=== PATIENT | male | born 1985 ===

== ENCOUNTER 2016-06-23 20:35 | Emergency (ER) | payer SELFPAY ==
[2016-06-23] MEDS ORDERED: PREDNISONE 20 MG TABLET ONE (21:30)
== END 2016-06-23 22:34 | disposition home or self-care (01) ==
LOC: ED 20:35
DX: J02.0 Streptococcal pharyngitis (principal); R53.1 Weakness

== ENCOUNTER 2016-08-11 17:21 | Emergency (ER) | payer SELFPAY ==
[2016-08-11] MEDS ORDERED: IOPAMIDOL 370 (76%) 100 ML VIAL IV ONE (17:22)
--- NOTE | 2016-08-11 19:02 | CT ---
Exam Type: ABD/PELVIS W/ CON Date and Time: 08/11/2016 6:25 PM Clinical information: Rectal bleeding with abdominal pain. Comparison: None Procedure: Imaging device: [employer] Aquilion [address] scanner 1 mm axial images were obtained through the abdomen and pelvis. Stacked reconstructed 3, 4 and 5 mm images were photographed in the axial coronal and sagittal planes. No oral contrast was utilized for this examination. 100 ml of Isovue-370 was injected intravenously. Exam: with intravenous contrast. FINDINGS: Lung bases:The visualized lung bases appear to be appropriate with no mass, effusion or consolidation visualized. Liver: the liver is homogeneous with no discrete abnormality visualized. No definite findings of biliary dilatation are observed. Spleen: The spleen is homogeneous and does not appear to be enlarged. Gallbladder: Normal without enlargement or evidence of adjacent inflammatory changes. Pancreas: Normal without enlargement or evidence of adjacent inflammatory changes. Adrenal glands: Normal without enlargement or evidence of adjacent inflammatory changes. Abdominal aorta: The aorta is of normal caliber and appears to be without significant atherosclerotic disease. Kidneys: The kidneys appear to be symmetric in size with no perinephric inflammatory changes are identified. No current findings of hydronephrosis are seen. Bowel structures: There is a large quantity of stool primarily within the proximal and mid portions of the colon. No evidence of obstruction is visualized. Appendix: The appendix is likely located along the anterior margin of the iliopsoas on axial image #71. No inflammatory stranding or evidence to suggest appendicitis is visualized. Bladder: The bladder is of normal contour. No wall thickening or significant distention is observed. Hernia: No abdominal wall or inguinal hernia is visualized on this examination. Adenopathy: No significant enlarged adenopathy is visualized. Osseous structures: No discrete osseous abnormalities are identified. Pelvic structures: No discrete pelvic abnormalities are visualized in this examination. IMPRESSION: 1. A large amount of stool, primarily within the proximal and mid aspects of the colon. No evidence of obstruction is visualized. 2. A fat filled umbilical hernia.
[2016-08-11 19:03] LABS: ABSOLUTE NEUTROPHIL COUNT 5.1 K/mm3 (1.8-7.7); BASO % 0.6 % (0.2-1.0); EOS # 0.2 (0.0-0.5); EOS % 3.2 % (0.9-2.9); HEMOGLOBIN 13.5 gm/l (14.0-18.0); IMM NEUT% 0.3 % (0-1); LYMPH # 1.1 (1.0-4.8); LYMPH % 16.6 % (15-45); MEAN CELL VOLUME 90.7 fl (80.0-94.0); MEAN CORPUSCULAR HEMOGLOBIN 29.2 pg (27.0-31.0); MEAN CORPUSCULAR HGB CONC 32.1 g/dl (33.0-37.0); MEAN PLATELET VOLUME 10.7 fl (7.4-10.4); MONO # 0.1 (0.0-0.8); MONO % 1.8 % (4-12); NEUT % 77.5 % (43-75); PLATELET COUNT 252 K/mm3 (130-400); RED CELL DISTRIBUTION WIDTH 13.3 % (11.5-14.5)
[2016-08-11 19:25] LABS: ALB/GLOB RATIO 1.3 (>1.0); ALBUMIN 3.9 gm/dL (3.5-5.7); CALCIUM 9.3 mg/dL (8.6-10.3)
== END 2016-08-11 19:54 | disposition home or self-care (01) ==
LOC: ED 17:21
DX: K62.5 Hemorrhage of anus and rectum (principal)
CPT/HCPCS: 85025; 80053; 74177; 99283 ×2; Q9967